=== PATIENT | female | born 1990 | race Caucasian/White ===

== ENCOUNTER 2025-05-29 18:07 | Emergency (ER) | payer OTHER, SELFPAY ==
--- NOTE | ~2025-05-29 | XR_ITS ---
CLINICAL HISTORY: fever 2 view chest x-ray Comparison: None provided Findings: The lungs are clear. Heart size is normal. No acute fracture. Thoracic dextroscoliosis. IMPRESSION: 1. Thoracic dextroscoliosis. 2. No acute cardiopulmonary findings. This document has been electronically signed by: Tobias Nair MD on 05/29/2025 19:00:20
[2025-05-29 18:21] VITALS: BP 121/65; PULSE 109; RESP 18; TEMP 39.4; O2SAT 100; BMI 30.2
--- NOTE | 2025-05-29 18:25 | ED.GENADULT ---
HPI - General Adult General Chief complaint: Fever Stated complaint: fever Time Seen by Provider: 05/29/25 18:48 Source: patient and family (Spouse) Mode of arrival: ambulatory Limitations: language barrier (Romansh speaking , C intact) History of Present Illness ED Provider: Dr. Jong Patricio HPI narrative: 34-year-old female with status post 4 months prior who presents emergency department for evaluation of sore throat , fever, chills, chest pain, myalgias and arthralgias, poor fluid intake, lightheadedness, dizziness x4 days. Patient states she is having difficulty swallowing secondary to her throat pain. She is also complaining of an itchy sensation in both palms. She has not noticed a rash. She denied cough but he is having chest pain which is worse with breathing. She complains of shortness of breath at rest but no dyspnea on exertion. She had nausea but no vomiting. She denied diarrhea. She has had dysuria but no urinary frequency. She states that her joints and muscles ache. Related Data Previous Rx's ?Medication ?Instructions ?Recorded acetaminophen 500 mg tablet 1,000 mg (2 x 500 mg) PO Q6H PRN 05/29/25 (Tylenol Extra Strength) pain #20 tabs ibuprofen 400 mg tablet 400 mg PO TID PRN fever or pain 05/29/25 #30 tabs penicillin V potassium 500 mg 500 mg PO BID 10 days #20 tabs 05/29/25 tablet Allergies Allergy/AdvReac Type Severity Reaction Status Date / Time No Known Allergies Allergy Verified 05/29/25 18:23 Review of Systems Review of Systems: Yes all other systems are reviewed and are negative [facility] Past Medical History [facility] Narrative: Social history: The patient is . Her is here in the emergency department with her. She denies tobacco, alcohol and drug use. Social History Social History Advance Directives: No Advance Directives Information Provided: Yes Physical Exam ED Vital Signs: Vital Signs - 24 hr 05/29/25 18:21 05/29/25 19:42 05/29/25 20:36 Temperature 102.9 F H 100.5 F H Pulse Rate 109 H 98 103 H Respiratory Rate 18 20 20 Blood Pressure 121/65 104/63 102/48 L Pulse Oximetry 100 100 Oxygen Delivery Method Room Air Room Air 05/29/25 20:37 Temperature 98.7 F Pulse Rate Respiratory Rate Blood Pressure Pulse Oximetry Oxygen Delivery Method BMI result Body Mass Index 30.2 Vital signs revealed an elevated temperature of a 102.9 degrees F, elevated heart rate of 109, normal respiratory rate and blood pressure. O2 saturation was 100% on room air Exam: General: Awake, alert in no distress Head: Normocephalic, atraumatic EENT: PERRL, sclera and conjunctiva are normal, mouth, patient has symmetrically , large tonsils bilaterally with significant erythema and bilateral exudates, symmetric tonsils with no uvula deviation and no trismus. Neck: Supple, no adenopathy Lung: breath sounds symmetric, no wheezing, no rales and no rhonchi Chest: symmetric movement, nontender Heart: regular rate and rhythm, normal S1, S2 no murmurs or rubs Abdomen: soft, non-tender, nondistended, normal bowel sounds Back: no vertebral tenderness, mild right CVA tenderness Extremities: no deformities, moves all extremities symmetrically, no edema Neuro: Awake, alert, oriented, normal speech, cranial nerves 2-12 intact, moves all extremities symmetrically Psych: Pleasant, cooperative Course Course Course Narrative: This is a Rapid Medical Examination (RME) performed by Sonya Morillo PA-C in triage. Full HPI, ROS, assessment and treatment plan per primary provider in the Main ED. Hx: 34 yo F here w/ sore throat, chills, myalgias, subjective fevers, nausea without vomiting x4 days. taking motrin/tylenol, last dose of both was 2 hours ago. assos dysuria and low back pain. PE/vitals: febrile to 102, tachycardic Plan: labs, UA, viral/strep swabs Medications Administered Discontinued Medications Generic Name Dose Route Start Last Admin Trade Name Freq PRN Reason Stop Dose Admin Acetaminophen 975 mg 05/29/25 19:08 05/29/25 19:30 Acetaminophen 325 Mg Tablet PO 05/29/25 19:09 975 mg ONCE ONE Administration Dexamethasone Sodium Phosphate 10 mg 05/29/25 19:07 05/29/25 19:22 Dexamethasone Sod Phosphate 10 Mg/Ml Vial IVPUSH 05/29/25 19:08 10 mg ONCE ONE Administration Diphenhydramine HCl 25 mg 05/29/25 19:07 05/29/25 19:22 Diphenhydramine Hcl 50 Mg/Ml Vial IVPUSH 05/29/25 19:08 25 mg ONCE STA Administration Sodium Chloride 1,000 mls @ 999 mls/hr 05/29/25 19:07 05/29/25 19:23 Ns IV 05/29/25 20:07 999 mls/hr .Q1H1M STA Administration Ketorolac Tromethamine 15 mg 05/29/25 19:07 05/29/25 19:21 Ketorolac Tromethamine 15 Mg/Ml Vial IVPUSH 05/29/25 19:08 15 mg ONCE STA Administration Ondansetron HCl 4 mg 05/29/25 19:07 05/29/25 19:22 Ondansetron Hcl 4 Mg/2 Ml Vial IVPUSH 05/29/25 19:08 4 mg ONCE ONE Administration Medical Decision Making Medical Decision Making [facility] Narrative: 34-year-old female with status post 4 months prior who presents emergency department for evaluation of sore throat , fever, chills, chest pain, myalgias and arthralgias, poor fluid intake, lightheadedness, dizziness x4 days. Patient states she is having difficulty swallowing secondary to her throat pain. She is also complaining of an itchy sensation in both palms. She has not noticed a rash. She denied cough but he is having chest pain which is worse with breathing. She complains of shortness of breath at rest but no dyspnea on exertion. She had nausea but no vomiting. She denied diarrhea. She has had dysuria but no urinary frequency. She states that her joints and muscles ache. Vital signs revealed an elevated heart rate elevated temperature. Physical examination did reveal large tonsils with bilateral exudates and erythema with no trismus and uvula was midline. Patient had mild right CVA tenderness. Differential diagnosis: ?Includes but is not limited to viral pharyngitis, streptococcal pharyngitis, mononucleosis, viral syndrome, COVID-19, influenza, pneumonia, urinary tract infection, anemia, electrolyte abnormalities Course: 19:16 My independent interpretation patient's laboratory evaluation as follows: WBC elevated 11,900 with 77 neutrophils 14 lymphocytes with no atypical lymphocytes. Chest x-ray revealed no evidence of pneumonia. Given the patient's throat findings I suspect that her symptoms are most likely related to pharyngitis. I ordered Toradol 15 mg IV, dexamethasone 10 mg IV, Tylenol 975 mg orally and normal saline IV x1 L. 21:54 My independent interpretation of the patient's laboratory evaluation is as follows: Elevated WBC 17459. Low potassium 3.2. Low bicarb 21. Elevated glucose 130. Elevated AST and ALT 98 and 255. Beta-hCG was below detectable limits-the patient is not . COVID-19, influenza and RSV tests were negative. Monospot was negative. Strep test was negative. Patient felt significantly better after the above treatment. Given her pharyngeal findings I am concerned that she may have bilateral tonsillitis versus a viral pharyngitis I did discuss this with her. The patient was started on penicillin 500 mg b.i.d. times 10 days and given her 1st dose here in the emergency department. She was also given prescriptions for ibuprofen 400 mg 3 times a day as needed for pain and fever and Tylenol 1000 mg 3 times a day as needed for pain and fever. She was given printed and verbal instructions and discharged home. Differential Diagnosis Differential Diagnoses: The differential diagnosis associated with the presentation includes (See above) Admission/Observation Consideration of admission/observation: Escalation of care including admission/observation considered (Yes) Lab Data [facility] Lab Attestation statement: I reviewed the patient's lab results. 05/29/25 18:46 05/29/25 18:46 Labs: Lab Results 05/29/25 05/29/25 Range/Units 18:46 20:42 WBC 11.9 H (4.8-10.8) X10*3/uL RBC 4.07 L (4.20-5.50) X10*6/uL Hgb 12.6 (12.0-16.0) g/dl Hct 37.4 (37.0-47.0) % MCV 91.9 (80.0-98.0) fL MCH 31.0 (27.0-33.0) pg MCHC 33.7 (31.0-35.0) g/dl RDW 12.9 (11.0-16.0) % Plt Count 216 (160-400) X10*3/uL MPV 10.4 (9.4-12.3) fL Immature Gran % (Auto) 0.8 H (0.0-0.4) % Neut % (Auto) 77.3 H (45-73) % Lymph % (Auto) 14.6 L (20-40) % Power % (Auto) 7.0 (2-11) % Eos % (Auto) 0.1 (0-4) % Baso % (Auto) 0.2 (0-2) % Lymph # (Auto) 1.7 (1.2-4.9) X10*3/uL Power # (Auto) 0.8 (0.1-1.2) X10*3/uL Eos # (Auto) 0.0 (0.0-0.4) X10*3/uL Baso # (Auto) 0.0 (0.0-0.2) X10*3/uL Abs Immat Gran (auto) 0.09 H (0.00-0.03) X10*3/uL Absolute Neuts (auto) 9.2 H (2.0-8.3) x10*3/uL Absolute Nucleated RBC 0.000 (0.0-0.012) X10*3/uL Nucleated RBC % (auto) 0.0 (0.0-0.2) /100WBC Sodium 137 (135-145) mmol/L Potassium 3.2 L (3.3-5.1) mmol/L Chloride 108 (96-108) mmol/L Carbon Dioxide 21 L (22-29) mmol/L Anion Gap 11 L (12-20) BUN 6 L (9-16) mg/dL Creatinine 0.65 (0.5-1.4) mg/dL Estim Creat Clear Calc 113.6 Estimated GFR > 60 Random Glucose 130 H (60-115) mg/dL Lactic Acid 1.0 (0.5-2.0) mmol/L Calcium 9.4 (8.4-10.2) mg/dL Magnesium 1.8 (1.6-2.6) mg/dL Total Bilirubin 0.6 (0.0-1.0) mg/dL AST 98 H (5-31) U/L ALT 255 H (0-31) U/L Alkaline Phosphatase 88 (39-117) U/L Total Protein 8.1 H (6.5-8.0) g/dL Albumin 4.8 (3.5-5.0) g/dL Beta HCG, Quant < 2 mIU/mL COVID-19 (LIDYA) Negative (Negative) COVID-19 Clin Com See Note Monoscreen Negative (Negative) Influenza Type A ([facility]YSTAL) Negative (Negative) Influenza Type B (CRYSTAL) Negative (Negative) Influenza A & B Note See Note S. pyogenes GrpA [facility]YSTAL Negative (Negative) Independent Interpretation I performed an independent interpretation of an: Plain X-Ray Interpretation: My individual interpretation patient's two view chest x-ray is as follows: No acute disease. Radiology Impression Discussion of test interpretation with radiology: I have reviewed the radiologist's reading. Radiologist Impression: 2 view chest x-ray Comparison: None provided Findings: The lungs are clear. Heart size is normal. No acute fracture. Thoracic dextroscoliosis. IMPRESSION: 1. Thoracic dextroscoliosis. 2. No acute cardiopulmonary findings. This document has been electronically signed by: Tobias Nair MD Independent Historian Clinical information obtained from an independent historian. History obtained from or confirmed by: Spouse Prescription Management I considered prescription management with: Pain Medication (Tylenol and ibuprofen) and Antibiotic (Penicillin) Discharge Plan Discharge Clinical Impression: Fever, Elevated liver transaminase level Acute pharyngitis Qualifiers: Pharyngitis/tonsillitis etiology: unspecified etiology Qualified Code(s): J02.9 - Acute pharyngitis, unspecified Patient Disposition: Home, Self-Care Additional Instructions: Your chest x-ray revealed no evidence for pneumonia. Your blood work [place] [address]. Your liver tests ( AST and ALT) were elevated 98 and 255. These elevated blood values are related to your infection. One month after your better I want you to follow up with your doctor and get repeat blood work to make sure that your liver tests go back to normal. Your COVID-19, influenza, RSV, rapid strep and mono tests were negative. Your chest x-ray revealed no evidence of pneumonia. Take penicillin 500 mg pills, 1 pill every 12 hours for 10 days. Make sure you finish the full course of your antibiotics. Take ibuprofen 400 mg pill, 1 pills every 6 hours as needed for pain or fever. Take Tylenol (acetaminophen) 500 mg pills, 2 pills every 6 hours as needed for pain or fever. Place 1 teaspoon of salt in 8 oz of warm water and gargle this 3 times a day to help improve your sore throat pain. Increase your fluid intake to prevent dehydration Follow-up with your doctor in 2 days. Please return to the emergency department if your symptoms get worse or if you develop any symptoms that are concerning to you. Prescriptions: New penicillin V potassium 500 mg tablet 500 mg PO BID 10 Days Qty: 20 0RF acetaminophen [Tylenol Extra Strength] 500 mg tablet 1,000 mg PO Q6H PRN (Reason: pain) Qty: 20 0RF ibuprofen 400 mg tablet 400 mg PO TID PRN (Reason: fever or pain) Qty: 30 0RF Print Language: Romansh
[2025-05-29 18:55] LABS: MANUAL DIFF FLAG NO
[2025-05-29 18:59] LABS: Hematocrit 37.4 % (37.0-47.0); Hemoglobin 12.6 g/dl (12.0-16.0); Imm Gran Abs Auto 0.09 X10*3/uL (0.00-0.03); Imm Gran Pct Auto 0.8 % (0.0-0.4); Lymphocytes Absolute Auto 1.7 X10*3/uL (1.2-4.9); Mean Corpuscular HGB Conc 33.7 g/dl (31.0-35.0); Mean Corpuscular Hemoglobin 31.0 pg (27.0-33.0); Mean Corpuscular Volume 91.9 fL (80.0-98.0); NRBC Abs Auto 0.000 X10*3/uL (0.0-0.012); NRBC Pct Auto 0.0 /100WBC (0.0-0.2); Platelet Count 216 X10*3/uL (160-400); Red Blood Count 4.07 X10*6/uL (4.20-5.50); White Blood Count 11.9 X10*3/uL (4.8-10.8)
[2025-05-29 19:10] LABS: IDNOW Serial# 55D5AD1C; Strep A Nucleic Acid Negative (Negative)
[2025-05-29 19:18] LABS: COVID-19 Test Negative (Negative); IDNOW Serial# 58CA691E
--- NOTE | 2025-05-29 19:20 | PC.NURSE ---
this RN assumed care of this pt @1900, pt is A+Ox3, at this time pt medicated per OCT, pt noted to be laying semi brock's, no apparent distress noted, respirations even and unlabored, RR 18, no needs made aware at this time
[2025-05-29 19:21] LABS: Alanine Aminotransferase 255 U/L (0-31); Albumin Level 4.8 g/dL (3.5-5.0); Alkaline Phosphatase 88 U/L (39-117); Anion Gap 11 (12-20); Aspartate Amino Transferase 98 U/L (5-31); Blood Urea Nitrogen 6 mg/dL (9-16); Calcium 9.4 mg/dL (8.4-10.2); Carbon Dioxide 21 mmol/L (22-29); Chloride 108 mmol/L (96-108); Creatinine Clr Calc Pharmacy 113.6; Estimated Glomerular Filt Rate > 60; Magnesium 1.8 mg/dL (1.6-2.6); Potassium 3.2 mmol/L (3.3-5.1); Sodium 137 mmol/L (135-145); Total Protein 8.1 g/dL (6.5-8.0)
[2025-05-29 19:26] LABS: IDNOW Serial# 08D9AD1C; Influenza B2 Negative (Negative)
[2025-05-29 19:42] VITALS: BP 104/63; PULSE 98; RESP 20; TEMP 38.1; O2SAT 100
[2025-05-29 20:36] VITALS: BP 102/48; PULSE 103; RESP 20
[2025-05-29 20:37] VITALS: TEMP 37.1
[2025-05-29 21:55] VITALS: BP 106/52; PULSE 75; RESP 19; TEMP 36.7
[2025-05-29 22:23] VITALS: BP 106/52; PULSE 75; RESP 19; TEMP 36.7
== END 2025-05-29 22:32 | disposition home or self-care (01) ==
PROVIDERS: Physician Assistant Medical; Emergency Provider Emergency Medicine Emergency Medical Services
DX: J02.9 Acute pharyngitis, unspecified (principal); R50.9 Fever, unspecified; R30.0 Dysuria; M79.10 Myalgia, unspecified site; R07.89 Other chest pain; R11.0 Nausea; R42 Dizziness and giddiness; R94.5 Abnormal results of liver function studies; Z11.52 Encounter for screening for COVID-19; Z79.899 Other long term (current) drug therapy
CPT/HCPCS: 36415; 71046; 80053; 83605; 83735; 84702; 85025; 86308; 87040; 87502; 87635; 87651; 96361; 96374; 96375; 99284; J1100; J1200; J1885; J2405

== ENCOUNTER → 2025-05-29 18:27 | Outpatient (BNV) | payer OTHER, SELFPAY | PROVIDERS: Emergency Provider Emergency Medicine Emergency Medical Services; Visit Provider Radiology Diagnostic Radiology | DX: M41.34 Thoracogenic scoliosis, thoracic region (principal) | CPT/HCPCS: 71046 ==

== ENCOUNTER 2025-05-31 16:50 | Emergency (ER) | payer OTHER, SELFPAY ==
--- NOTE | ~2025-05-31 | XR_ITS ---
CLINICAL HISTORY: Coughing. pnuemonia? 1 view chest x-ray Comparison: CR - XR CHEST 2V - 05/29/25 18:42 EDT Findings: No consolidation or effusion. Heart size is normal. No acute fracture. Thoracic dextroscoliosis. IMPRESSION: 1. Thoracic dextroscoliosis. 2. No acute cardiopulmonary findings. This document has been electronically signed by: Tobias Nair MD on 05/31/2025 17:28:02
--- NOTE | 2025-05-31 16:51 | ECG_ITS ---
Test Reason : CP Blood Pressure : */* mmHG Vent. Rate : 74 BPM Atrial Rate : 74 BPM P-R Int : 156 ms QRS Dur : 86 ms QT Int : 374 ms P-R-T Axes : 43 16 23 degrees QTcB Int : 415 ms Normal sinus rhythm Otherwise normal ECG No previous ECGs available Referred By: Generic ED Physician Electronically Signed By: Watson Blanton
[2025-05-31 17:01] VITALS: BP 133/83; PULSE 77; RESP 18; TEMP 36.7; O2SAT 99; BMI 29.5
--- NOTE | 2025-05-31 17:09 | ED.GENADULT ---
HPI - General Adult General Chief complaint: General Medical Stated complaint: difficulty breathing, chest pain Time Seen by Provider: 05/31/25 17:47 Source: patient Mode of arrival: ambulatory Limitations: no limitations History of Present Illness ED Provider: MARIANO Gómez HPI narrative: 34-year-old female presents with chest pain ( worse w/ deep breathing) , shortness of breath that started also reporting associated fatigue, malaise, myalgias, sore throat. Denies sick contacts. Denies headache, vision changes, dizziness. Still eating and drinking. Related Data Previous Rx's ?Medication ?Instructions ?Recorded acetaminophen 500 mg tablet 1,000 mg (2 x 500 mg) PO Q6H PRN 05/29/25 (Tylenol Extra Strength) pain #20 tabs ibuprofen 400 mg tablet 400 mg PO TID PRN fever or pain 05/29/25 #30 tabs penicillin V potassium 500 mg 500 mg PO BID 10 days #20 tabs 05/29/25 tablet famotidine 20 mg tablet (Pepcid) 20 mg PO BID #28 tabs 05/31/25 omeprazole 20 mg capsule,delayed 20 mg PO DAILY #14 caps 05/31/25 release Allergies Allergy/AdvReac Type Severity Reaction Status Date / Time No Known Allergies Allergy Verified 05/31/25 17:04 Review of Systems Review of Systems: Yes all other systems are reviewed and are negative PMFSH Past Medical History Attestation statement: The following information was validated with the patient. Source: old records reviewed and nursing notes reviewed Social History Social History Smoked in Last 30 Days: No Use of substances other than those prescribed or required for medical reasons: No Advance Directives: No Advance Directives Information Provided: No Patient : No Physical Exam ED Exam Exam: Appearance: Alert.? Oriented X3.? No acute distress.? Head: Normocephalic, atraumatic, no step-offs or deformities Eyes: Pupils equal, round and reactive to light.? CVS: Normal heart rate and rhythm.? Pulses normal.? Respiratory: No respiratory distress.? Breath sounds normal.? Abdomen: Soft and nontender.? Skin: Skin warm and dry.? Normal skin color.? Normal skin turgor.? Extremities: No lower extremity edema.? No calf ttp. 5/5 strength to bilateral upper and lower extremities Back: No midline tenderness, no C-spine tenderness, full range of motion, no CVA tenderness bilaterally Neuro: Oriented X 3.? No motor deficit.? No sensory deficit. CN 2-12 intact Vital Signs: Vital Signs - 24 hr 05/31/25 17:01 05/31/25 18:23 05/31/25 21:27 Temperature 98.1 F 98.1 F 98.2 F Pulse Rate 77 77 72 Respiratory Rate 18 18 16 Blood Pressure 133/83 133/83 127/50 L Pulse Oximetry 99 99 98 Oxygen Delivery Method Room Air Room Air Room Air BMI result Body Mass Index 29.5 vss Course Course Course Narrative: RME: 33-year-old female presents to ED for chest pain and shortness of breath. Patient on Tuesday had sore throat body aches which resolved. Patient was seen here in the ED had negative x-ray COVID influenza strep. Patient returned for chest pain. EKG labs ordered Reevaluation(s) Reevaluation #1: CBC with leukocytosis no left shift. Chemistry with no acute findings needing intervention. Transaminases elevated, AST 44, ALT 164. Troponin negative, proBNP 192.5. COVID negative, influenza negative. Strep negative. I did add a D-dimer. Pending Time: 18:45 Reevaluation #2: Patient reports GERD like symptoms. Will order Maalox Time: 19:00 Reevaluation #3: Sign out to Blaze Additional Reevaluation(s): 8:27 PM 05/31/2025 (Sonya QUINTANA): The patient was signed out to this provider at shift change. In summary the patient is a 34-year-old female who is 3 months presenting to the ED for evaluation of sore throat, body aches, chest pain, and shortness of breath which began on Tuesday. The patient underwent extensive workup in the ED. Chest x-ray shows no acute cardiopulmonary process. Laboratory evaluation shows no significant leukocytosis or anemia, no electrolyte abnormality, or [id number]. The patient's viral swabs are negative for COVID an influenza, strep swab was negative, troponin was negative, BNP normal, EKG nonischemic. D-dimer negative. Patient is signed out pending Monospot, Monospot has now resulted and is negative. The patient is likely suffering from a viral URI versus GERD, patient was treated with Maalox and IV tylenol. We will use senior validation engineer services to reassess symptoms and plan for likely discharge with outpatient supportive care. 9:08 PM 05/31/2025 (Sonya QUINTANA): On reassessment the patient reports significant improvement in symptoms following Maalox administration. Upon reassessment patient advised she was seen in this ED on Tuesday for the same symptoms, was informed she likely had a viral versus bacterial strep throat and was discharged home with penicillin which she has been taking. Chart review reveals patient was also negative for COVID, influenza, strep, and mono during her initial visit on the . Given the patient's improvement in symptoms following Maalox, patient may be suffering from acid reflux. Patient will be discharged with Pepcid, omeprazole, and instructed to continue all other previously prescribed medications. 9:17 PM 05/31/2025 (Sonya QUINTANA): Upon further review, the patient is reporting pain in the epigastrium/substernal area radiating into her back, labs demonstrate moderate transaminitis with AST 98 on Tuesday, 44 today, and ALT 255 on Tuesday and 164 today, T bili and alkaline phosphatase are normal. We will add on a lipase and ethanol level to rule out pancreatitis. Pending unremarkable lipase and ethanol patient will be discharged with treatment plan for gastritis/GERD as described above. 10:43 PM 05/31/2025 (Sonya QUINTANA): Lipase and ethanol levels are unremarkable. Patient will be discharged as described above. Medications Administered Discontinued Medications Generic Name Dose Route Start Last Admin Trade Name Freq PRN Reason Stop Dose Admin Al Hydroxide/Mg Hydroxide 30 ml 05/31/25 19:00 05/31/25 20:01 Magnesium Hydrox/Alum Hydrox 30 Ml Oral.Susp PO 05/31/25 19:01 30 ml ONCE ONE Administration Famotidine 20 mg 05/31/25 21:01 05/31/25 22:07 Famotidine 20 Mg Tablet PO 05/31/25 21:02 20 mg ONCE ONE Administration Acetaminophen 1,000 mg in 100 mls @ 400 mls/hr 05/31/25 19:14 05/31/25 20:47 Ofirmev IV 05/31/25 19:28 Infused ONCE ONE Infusion Omeprazole 20 mg 05/31/25 21:01 05/31/25 22:08 Omeprazole 20 Mg Capsule.Dr MAY 05/31/25 21:02 20 mg ONCE ONE Administration Medical Decision Making Medical Decision Making [facility] Narrative: 1755 34 year old female presents w/ cp, sob, fatigue, malaise, myalgias and sore throat since Tuesday PE benign Hx and pe concerning for viral illness. Unlikely PE ([facility] -)/ACS/ acute respiratory distress. Plan labs, imaging, viral testing Differential Diagnosis Differential Diagnoses: The differential diagnosis associated with the presentation includes (Hx and pe concerning for viral illness. Unlikely PE/ACS/ acute respiratory distress.) Admission/Observation Consideration of admission/observation: Escalation of care including admission/observation considered Lab Data [facility] Lab Attestation statement: I reviewed the patient's lab results. 05/31/25 17:20 05/31/25 17:20 Labs: Lab Results 05/31/25 05/31/25 05/31/25 Range/Units 17:20 17:57 18:20 WBC 11.2 H (4.8-10.8) X10*3/uL RBC 3.74 L (4.20-5.50) X10*6/uL Hgb 11.4 L (12.0-16.0) g/dl Hct 34.2 L (37.0-47.0) % MCV 91.4 (80.0-98.0) fL MCH 30.5 (27.0-33.0) pg MCHC 33.3 (31.0-35.0) g/dl RDW 13.0 (11.0-16.0) % Plt Count 257 (160-400) X10*3/uL MPV 9.7 (9.4-12.3) fL Immature Gran % (Auto) 2.7 H (0.0-0.4) % Neut % (Auto) 59.5 (45-73) % Lymph % (Auto) 29.4 (20-40) % [place] % (Auto) 7.5 (2-11) % Eos % (Auto) 0.5 (0-4) % Baso % (Auto) 0.4 (0-2) % Lymph # (Auto) 3.3 (1.2-4.9) X10*3/uL [place] # (Auto) 0.8 (0.1-1.2) X10*3/uL Eos # (Auto) 0.1 (0.0-0.4) X10*3/uL Baso # (Auto) 0.0 (0.0-0.2) X10*3/uL Abs Immat Gran (auto) 0.30 H (0.00-0.03) X10*3/uL Absolute Neuts (auto) 6.7 (2.0-8.3) x10*3/uL Absolute Nucleated RBC 0.000 (0.0-0.012) X10*3/uL Nucleated RBC % (auto) 0.0 (0.0-0.2) /100WBC D-Dimer High Sensitivty NG/ML Sodium 140 (135-145) mmol/L Potassium 3.5 (3.3-5.1) mmol/L Chloride 109 H (96-108) mmol/L Carbon Dioxide 23 (22-29) mmol/L Anion Gap 12 (12-20) BUN 10 (9-16) mg/dL Creatinine 0.60 (0.5-1.4) mg/dL Estim Creat Clear Calc 121.6 Estimated GFR > 60 Random Glucose 90 (60-115) mg/dL Calcium 9.1 (8.4-10.2) mg/dL Total Bilirubin 0.2 (0.0-1.0) mg/dL AST 44 H (5-31) U/L ALT 164 H (0-31) U/L Alkaline Phosphatase 77 (39-117) U/L Troponin I High Sens < 2.7 (<3.5-17.0) ng/L NT-Pro-B Natriuret Pep 192.5 (<300) pg/mL Total Protein 7.4 (6.5-8.0) g/dL Albumin 4.2 (3.5-5.0) g/dL Lipase 23 (8-78) U/L Ethyl Alcohol 11 mg/dL COVID-19 (LIDYA) Negative (Negative) COVID-19 Clin Com See Note Monoscreen (Negative) Influenza Type A (CRYSTAL) Negative (Negative) Influenza Type B (CRYSTAL) Negative (Negative) Influenza A & B Note See Note S. pyogenes GrpA CRYSTAL Negative (Negative) 05/31/25 05/31/25 Range/Units 19:09 19:35 WBC (4.8-10.8) X10*3/uL RBC (4.20-5.50) X10*6/uL Hgb (12.0-16.0) g/dl Hct (37.0-47.0) % MCV (80.0-98.0) fL MCH (27.0-33.0) pg MCHC (31.0-35.0) g/dl RDW (11.0-16.0) % Plt Count (160-400) X10*3/uL MPV (9.4-12.3) fL Immature Gran % (Auto) (0.0-0.4) % Neut % (Auto) (45-73) % Lymph % (Auto) (20-40) % [place] % (Auto) (2-11) % Eos % (Auto) (0-4) % Baso % (Auto) (0-2) % Lymph # (Auto) (1.2-4.9) X10*3/uL [place] # (Auto) (0.1-1.2) X10*3/uL Eos # (Auto) (0.0-0.4) X10*3/uL Baso # (Auto) (0.0-0.2) X10*3/uL Abs Immat Gran (auto) (0.00-0.03) X10*3/uL Absolute Neuts (auto) (2.0-8.3) x10*3/uL Absolute Nucleated RBC (0.0-0.012) X10*3/uL Nucleated RBC % (auto) (0.0-0.2) /100WBC D-Dimer High Sensitivty 206 NG/ML Sodium (135-145) mmol/L Potassium (3.3-5.1) mmol/L Chloride (96-108) mmol/L Carbon Dioxide (22-29) mmol/L Anion Gap (12-20) BUN (9-16) mg/dL Creatinine (0.5-1.4) mg/dL Estim Creat Clear Calc Estimated GFR Random Glucose (60-115) mg/dL Calcium (8.4-10.2) mg/dL Total Bilirubin (0.0-1.0) mg/dL AST (5-31) U/L ALT (0-31) U/L Alkaline Phosphatase (39-117) U/L Troponin I High Sens < 2.7 (<3.5-17.0) ng/L NT-Pro-B Natriuret Pep (<300) pg/mL Total Protein (6.5-8.0) g/dL Albumin (3.5-5.0) g/dL Lipase (8-78) U/L Ethyl Alcohol mg/dL COVID-19 (LIDYA) (Negative) COVID-19 Clin Com Monoscreen Negative (Negative) Influenza Type A (CRYSTAL) (Negative) Influenza Type B (CRYSTAL) (Negative) Influenza A & B Note S. pyogenes GrpA CRYSTAL (Negative) Critical Care Time Critical Care Time Critical Care Time: No Discharge Plan Discharge Clinical Impression: GERD (gastroesophageal reflux disease) Patient Disposition: Home, Self-Care Instructions: Diet for Stomach Ulcers and Gastritis (ED), GERD (Gastroesophageal Reflux Disease) (ED), Indigestion (ED) Additional Instructions: Thank you for choosing [facility]'s Emergency Department for your care today. Thankfully your repeat evaluation in the ED today is reassuring. You were negative for influenza, COVID, mononucleosis, and bacterial sore throat. There is no evidence of any other acute cardiac, pulmonary, infectious, coagulopathic (blood clot), pancreatic, or other dangerous cause for your symptoms. At this time there is no indication for admission to the hospital or continued ED observation, and it is safe to discharge you home. Your symptoms improved after receiving Maalox, this indicates your symptoms are likely related to inflammation of your stomach, a condition known as gastritis, also commonly referred to as GERD. We are treating you with omeprazole and Pepcid, which should help relieve your symptoms. You may also take [id number] calcium based antacids in addition to these medications for any increasing your symptoms. Please stay well hydrated and get plenty of rest. Please read the attached instructions regarding diet changes to help reduce your symptoms. Please follow up with your primary care physician for re-evaluation, additional management of your symptoms, and continued preventative care. If you do not have a primary care physician, please call the [facility] at [phone] to establish a new primary care physician. While waiting to establish your new primary care physician, you can call our [facility] at [phone] for non-emergency needs. Please return to the emergency department if you develop a severe or sudden change in your symptoms, a fever over 100.4 that does not improve with Tylenol or Ibuprofen, recurrent vomiting, or any other new or worsening symptoms or concerns. Prescriptions: New famotidine [Pepcid] 20 mg tablet 20 mg PO BID Qty: 28 0RF omeprazole 20 mg capsule,delayed release(DR/EC) 20 mg PO DAILY Qty: 14 0RF No Action penicillin V potassium 500 mg tablet 500 mg PO BID 10 Days Qty: 20 0RF acetaminophen [Tylenol Extra Strength] 500 mg tablet 1,000 mg PO Q6H PRN (Reason: pain) Qty: 20 0RF ibuprofen 400 mg tablet 400 mg PO TID PRN (Reason: fever or pain) Qty: 30 0RF Interventions: ED Discharge Assessment Last Done: 05/31/25 22:54 Discharge Date/Time: 05/31/25 22:55 Print Language: Croatian
[2025-05-31 17:23] LABS: MANUAL DIFF FLAG NO
[2025-05-31 17:27] LABS: Hematocrit 34.2 % (37.0-47.0); Hemoglobin 11.4 g/dl (12.0-16.0); Imm Gran Abs Auto 0.30 X10*3/uL (0.00-0.03); Imm Gran Pct Auto 2.7 % (0.0-0.4); Lymphocytes Absolute Auto 3.3 X10*3/uL (1.2-4.9); Mean Corpuscular HGB Conc 33.3 g/dl (31.0-35.0); Mean Corpuscular Hemoglobin 30.5 pg (27.0-33.0); Mean Corpuscular Volume 91.4 fL (80.0-98.0); NRBC Abs Auto 0.000 X10*3/uL (0.0-0.012); NRBC Pct Auto 0.0 /100WBC (0.0-0.2); Platelet Count 257 X10*3/uL (160-400); Red Blood Count 3.74 X10*6/uL (4.20-5.50); White Blood Count 11.2 X10*3/uL (4.8-10.8)
[2025-05-31 17:48] LABS: NT Pro B Type Natriuretic Pept 192.5 pg/mL (<300)
[2025-05-31 17:49] LABS: Alanine Aminotransferase 164 U/L (0-31); Albumin Level 4.2 g/dL (3.5-5.0); Anion Gap 12 (12-20); Aspartate Amino Transferase 44 U/L (5-31); Blood Urea Nitrogen 10 mg/dL (9-16); Calcium 9.1 mg/dL (8.4-10.2); Carbon Dioxide 23 mmol/L (22-29); Chloride 109 mmol/L (96-108); Creatinine Clr Calc Pharmacy 121.6; Estimated Glomerular Filt Rate > 60; Potassium 3.5 mmol/L (3.3-5.1); Sodium 140 mmol/L (135-145); Total Protein 7.4 g/dL (6.5-8.0); Troponin-I High Sensitivity < 2.7 ng/L (<3.5-17.0)
[2025-05-31 17:57] LABS: Alkaline Phosphatase 77 U/L (39-117)
[2025-05-31 18:23] VITALS: BP 133/83; PULSE 77; RESP 18; TEMP 36.7; O2SAT 99
[2025-05-31 18:26] LABS: COVID-19 Test Negative (Negative); IDNOW Serial# 55D5AD1C; IDNOW Serial# 58CA691E; Influenza B2 Negative (Negative)
[2025-05-31 18:33] LABS: IDNOW Serial# 6674DD1D; Strep A Nucleic Acid Negative (Negative)
[2025-05-31 19:22] LABS: D Dimer High Sensitivity 206 NG/ML
[2025-05-31 19:34] LABS: Troponin-I High Sensitivity < 2.7 ng/L (<3.5-17.0)
[2025-05-31] MEDS: Magnesium Hydrox/Alum Hydrox 30 ML ORAL.SUSP PO (20:01)
[2025-05-31 21:27] VITALS: BP 127/50; PULSE 72; RESP 16; TEMP 36.8; O2SAT 98
[2025-05-31 21:38] LABS: Lipase 23 U/L (8-78)
[2025-05-31 22:54] VITALS: BP 127/50; PULSE 72; RESP 16; TEMP 36.8; O2SAT 98
== END 2025-05-31 22:55 | disposition home or self-care (01) ==
PROVIDERS: Physician Assistant; Emergency Provider Emergency Medicine
DX: K21.9 Gastro-esophageal reflux disease without esophagitis (principal); R06.02 Shortness of breath; R07.1 Chest pain on breathing; M79.10 Myalgia, unspecified site; J02.9 Acute pharyngitis, unspecified; Z11.52 Encounter for screening for COVID-19; Z79.899 Other long term (current) drug therapy
CPT/HCPCS: 36415; 71045; 80053; 80307; 83690; 83880; 84484; 85025; 85379; 86308; 87502; 87635; 87651; 93005; 99284; 99285; J0131

== ENCOUNTER → 2025-05-31 16:51 | Outpatient (BNV) | payer OTHER, SELFPAY | PROVIDERS: Emergency Provider Emergency Medicine; Visit Provider Internal Medicine Cardiovascular Disease | DX: R07.9 Chest pain, unspecified (principal) | CPT/HCPCS: 93010 ==

== ENCOUNTER → 2025-05-31 17:04 | Outpatient (BNV) | payer OTHER, SELFPAY | PROVIDERS: Emergency Provider Emergency Medicine; Visit Provider Radiology Diagnostic Radiology | DX: R05.9 Cough, unspecified (principal); M41.34 Thoracogenic scoliosis, thoracic region | CPT/HCPCS: 71045 ==